=== PATIENT | female | born 1990 | race Caucasian/White ===

== ENCOUNTER 2017-02-09 12:43 | Inpatient (IN) | payer OTHER ==
[2017-02-09] MEDS ORDERED: Benzocaine/Menthol 20%-0.5% Topical Spray (60 ml) TOP PRN (13:36)
[2017-02-09] MEDS ORDERED: Oxycodone/Acetaminophen 5/325 mg Tab PO PRN (13:36)
[2017-02-09] MEDS ORDERED: Oxytocin 30 UNIT 30 UNITS/500 ML BAG IV SCH (13:45)
[2017-02-09 14:53] LABS: BASO % 0.3 % (0.0-2.0); EOS # 0.1 K/uL (0.0-0.7); EOS % 0.6 % (0.0-4.0); HEMATOCRIT 35.9 % (34.0-47.0); LYMPH # 2.5 K/uL (1.0-4.3); MEAN CELL VOLUME 85.4 fL (81.0-99.0); MEAN CORPUSCULAR HEMOGLOBIN 28.3 pg (27.0-31.0); MEAN CORPUSCULAR HGB CONC 33.2 g/dL (33.0-37.0); MEAN PLATELET VOLUME 10.1 fL (7.2-11.7); MONO # 0.9 K/uL (0.0-0.8); MONO % 6.5 % (0.0-10.0); NRBC % 0.2 % (0.0-2.0); RED CELL DISTRIBUTION WIDTH 14.8 % (11.5-14.5); WHITE BLOOD COUNT 13.7 K/uL (4.8-10.8)
[2017-02-09 15:06] LABS: CHLORIDE 103 mmol/L (98-107); POTASSIUM 3.5 mmol/L (3.6-5.2); SODIUM 138 mmol/L (132-148)
[2017-02-09 15:08] LABS: ALKALINE PHOSPHATASE 176 U/L (38-126); AST/SGOT 20 U/L (14-36); BILIRUBIN,TOTAL 0.4 mg/dL (0.2-1.3); CARBON DIOXIDE 20 mmol/L (22-30); GFR AFRICAN-AMERICAN > 60; RBC URINE 3 /hpf (0-3); TOTAL PROTEIN 7.5 g/dL (6.3-8.3); URINE BILIRUBIN NEGATIVE (NEGATIVE); URINE BLOOD NEGATIVE (NEGATIVE); URINE COLOR Yellow (YELLOW); URINE GLUCOSE (UA) NORMAL (Normal); URINE KETONE NEGATIVE (NEGATIVE); URINE LEUKOCYTE ESTERASE NEG Leu/uL (Negative); URINE PROTEIN NEGATIVE (NEGATIVE); URINE UROBILINOGEN NORMAL mg/dL (0.2-1.0); WBC URINE < 1 /hpf (0-5)
[2017-02-09 15:09] LABS: ALT/SGPT 28 U/L (9-52); BLOOD UREA NITROGEN 7 mg/dL (7-17); CALCIUM 9.1 mg/dl (8.6-10.4); GLUCOSE,RANDOM 66 mg/dL (65-105)
--- NOTE | 2017-02-09 15:46 | OBHP ---
Datetime: 02/09/2017 13:22 IP Adm Impression: Term, intrauterine ; Active labor; Ruptured Membranes IP Admit Plan: Admit to unit; Initiate labor protocol Admit Comment, IP Provider: Patient is a 27 yo at 40w5d with CARMEN 02/04/17 by 39 week sonogram presents to L and D with contractions since 1am. Patient recently immigrated from [place] one month ag o and has had a total of 3 visits with the [facility] in [place]. Endorses +FM, denies VB or LOF. No other complaints at this time. Issues: denies OB Hx: 1. 2009 at term, no complications 2. 2011 at term, no complications 3. 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 Stable, afebrile 2. Admission labs - UA, CBC, CMP, T+S, RPR 3. IV hydration with LR 4. Anticipate vaginal delivery 5. Plan d/w attending Mercy Torrez DO PGY-1 Attending Attestation Patient seen and evaluated by me with the Resident. I agree with the documentaiton of events as ab ove. Patient is GBS (+); due to the imminent delivery, not able to administer penicillin; will notify peds. Patient clinically stable. Plan: - as above. FHR - Baseline A Provider: 130 Comments, ACOG Physical Exam: VS: BP 112/63 HR 62 Gen: AAOx3 Abd: Soft, gravid Ext: No clubbing, cyanosis, edema SVE: 10/100/+2 FHT: 130s PNL A+ Rubella immune HIV NR RPR NR GBS + GC/CT negative HepBSag NR 1 hr GTT wnl Quant gold negative EGA AdmitDate IP: 37.6 Vital Signs Provider: Reviewed; Within Normal Limits IP Chief Complaint: Uterine contractions Dilatation, Provider: 10 Effacement, Provider: 100 Station, Provider: 2
--- NOTE | 2017-02-09 15:58 | OBDS ---
DELIVERY PERSONNEL Delivery Doctor: Arlene Reed MD Resident: Carmelo Galo MD MATERNAL INFORMATION Delivery Anesthesia: None Medications in Delivery: PITOCIN Estimated Blood Loss (ml): 300 Placenta Cultured: No Maternal Complications: None Provider Comments: 27 yo now [id number] delivered a viable male via over intact perineum on at 12:40pm. Amniotic fluid was clear. 's head was delivered in a controlled manner. No n uchal was noted. 's shoulders was delivered atraumatically and followed by the body. 's m outh and nose were bulb suctioned. Cord was clamped and cut. was placed on mother's abdomen. C ord blood and cord gases collected and sent to the lab. An intact placenta with 3VC was delivered. Fu ndus firm with IV Pitocin and fundal massage. EBL 300 mL. The infant weighs 7lb8oz with APGARS 9 and 9. Mom and baby are recovering well in stable condition. All instruments and sponge counts were corre ct. Attending: Dr Derek MD Resident: Mercy Torrez DO PGY-1 Attending Attestation: I was present with and participated in the procedure with the Resident as described above. I agree with the documentation of the evants as above. Patient and bonding and are clinically stable. LABOR SUMMARY EDC: 02/24/2017 00:00 No. Babies in Womb: 1 Attempted: No Labor Anesthesia: None LABOR INFORMATION Reason for Induction: Not Applicable Onset of Labor: 02/09/2017 01:00 Complete Dilatation: 02/09/2017 12:30 Oxytocin: N/A Group B Beta Strep: Positive Antibiotics # of Doses: none Steroids Given: None Reason Steroids Not Administered: Not Applicable MEMBRANES Membranes Rupture Method: Spontaneous Rupture of Membranes: 02/09/2017 12:30 Length of Rupture (hrs): 0.17 Amniotic Fluid Color: Clear Amniotic Fluid Amount: Moderate Amniotic Fluid Odor: Normal STAGES OF LABOR Stage 1 hrs: 11 Stage 1 min: 30 Stage 2 hrs: 0 Stage 2 min: 10 Stage 3 hrs: 0 Stage 3 min: 5 Total Time in Labor hrs: 11 Total Time in Labor min: 45 VAGINAL DELIVERY Episiotomy: None Laceration Extension: N/A Laceration Type: None Laceration Repair: Not Applicable Initial Vag Sponge Count: 10 Final Vag Sponge Count: 10 Initial Vag Sharps Count: 0 Final Vag Sharps Count: 0 Sponge Count Correct: Yes Sharps Count Correct: N/A Count Comment: correct BABY A INFORMATION Infant Delivery Date/Time: 02/09/2017 12:40 Method of Delivery: Vaginal Born in Route : No : N/A Forceps: N/A Vacuum Extraction: N/A Shoulder Dystocia : No SHOULDER DYSTOCIA BABY A Delivery Date/Time: 02/09/2017 12:40 PRESENTATION/POSITION BABY A Presentation: Cephalic Cephalic Presentation: Vertex PLACENTA INFORMATION BABY A Placenta Delivery Time : 02/09/2017 12:45 Placenta Method of Delivery: Spontaneous Placenta Status: Delivered SCORES BABY A Heart Rate 1 min: >100 bpm Resp Effort 1 min: Good Cry Reflex Irritability 1 min: Cough or Sneeze or Pulls Away Muscle Tone 1 min: Active Motion Color 1 min: Body [place], Extremities Blue SCORE 1 MIN: 9 Heart Rate 5 min: >100 bpm Resp Effort 5 min: Good Cry Reflex Irritability 5 min: Cough or Sneeze or Pulls Away Muscle Tone 5 min: Active Motion Color 5 min: Body [place], Extremities Blue SCORE 5 MIN: 9 INFANT INFORMATION BABY A Gestational Age at Delivery: 40.0 Gestational Status: Term Outcome : Liveborn Condition : Stable Sex: Male IDENTIFICATION/MEDS BABY A ID Band Number: [id number] ID Band Location: Left Leg; Left Arm Sensor Applied: Yes Sensor Number: [id number] Sensor Location : Cord Clamp Vitamin K Given : Left Thigh Erythromycin Given: Given Both Eyes WEIGHT/LENGTH BABY A Birthweight (gms): 3425 Infant Weight (lb): 7 Weight (oz): 9 Length Inches: 20.00 Length cms: 50.8 CORD INFORMATION BABY A No. Cord Vessels: 3 Nuchal Cord : N/A Nuchal Cord Other: n/a True Knot: n/a Cord Blood Taken: Yes Suction: Mouth; Nose ASSESSMENT BABY A Infant Complications: None Physical Findings at Delivery: Within Normal Limits Respirations: Appears Normal Statistics Teacher/ALS Called : No Infant Care By: Jessica Transferred To: [facility]
[2017-02-10 08:40] VITALS: O2SAT 98
[2017-02-10 11:18] LABS: BASO % 0.2 % (0.0-2.0); EOS # 0.1 K/uL (0.0-0.7); EOS % 0.5 % (0.0-4.0); HEMATOCRIT 33.6 % (34.0-47.0); LYMPH # 1.9 K/uL (1.0-4.3); LYMPH % 17.7 % (20.0-40.0); MEAN CELL VOLUME 85.4 fL (81.0-99.0); MEAN CORPUSCULAR HEMOGLOBIN 28.6 pg (27.0-31.0); MEAN CORPUSCULAR HGB CONC 33.5 g/dL (33.0-37.0); MEAN PLATELET VOLUME 9.7 fL (7.2-11.7); MONO # 0.8 K/uL (0.0-0.8); MONO % 7.4 % (0.0-10.0); RED CELL DISTRIBUTION WIDTH 14.8 % (11.5-14.5); WHITE BLOOD COUNT 10.9 K/uL (4.8-10.8)
--- NOTE | 2017-02-10 17:49 | OBPPN ---
Datetime: 02/10/2017 09:03 PP Heart Prov: Normal PP Lungs Prov: Normal PP Abdomen/Uterus Prov: Normal PP Lochia Prov: Normal PP Extremities Prov: Normal PP Progress Prov: Normal PP Impression Prov: Normal progression PP Plan Prov: Continue present management PP Progress Note Prov: Patient was seen and examined at bedside. Patient reports that she is doing w ell and pain is well-controlled. Patient is tolerating diet, passing flatus, ambulating, urinating wi thout difficulty and had a bowel movement. Patient reports moderate lochia. Patient denies chest pain , SOB, palpitations, calf tenderness and dizziness. Vital signs: BP: 105/66 HR: 79, Temp: 98.2 Labs: 13.7>11.9/35.9<223, f/u AM labs A positive, Rubella Immune Gen: AAO X3, NAD Cardio: RRR, Normal S1, S2 Pulm: CTA bilaterally Abdomen: Soft, appropriately tender and fundus is firm and below the umbilicus Ext: No edema, no cyanosis and no clubbing A/P: 27 yo at 40w5d s/p PPD#1 1. Stable, Afebrile 2. F/u am CBC 3. Pain control: percocet and motrin 4. Encourage ambulation and hydration 5. Encourage breast feeding 6. Male infant: undecided circumcision 7. Continue routine care 8. Plan d/w attending Jose J Soto DO PGY-1 Pt seen and examined with resident and agrees with the above
--- NOTE | 2017-02-11 07:40 | OBDCSUM ---
Datetime: 02/11/2017 07:37 Discharged to, Provider: Home Follow up at, Provider: 6wee Discharge Diagnosis, Provider: Term Delivered Follow up in weeks, Provider: clinic Discharge Comment, Provider: dc home no sex motrin prn f/u in 6 weeks Discharge Diagnosis Prov Other: 40 weeks
--- NOTE | 2017-02-11 07:40 | OBPPN ---
Datetime: 02/11/2017 07:36 PP Pain Prov: Within normal limits PP Nausea Prov: Denies PP Flatus Prov: Yes PP Abdomen/Uterus Prov: Normal PP Lochia Prov: Normal PP Extremities Prov: Normal PP Comments Phys Exam Prov: fudus below umblicuis ext mild edema,no calf ten PP Impression Prov: Normal progression PP Plan Prov: Discharge PP Progress Note Prov: pt was seen at bed side, pain under control,no n/v, tolerating deit, voiding, min lochia, flatus+ ppd#2 s/p dc home no sex motrin prn f/u in 6 weeks Vital Signs Provider PP: Reviewed; Within Normal Limits
[2017-02-11 17:44] VITALS: BP 102/60; PULSE 83; RESP 18; TEMP 97.7
== END 2017-02-11 13:30 | disposition home or self-care (01) | DRG 373 ==
LOC: C.EROB 12:43 → C.4D 12:49 → C.4M 20:20
PROVIDERS: ADMIT Obstetrics & Gynecology; ATTEND Obstetrics & Gynecology
PROC: 10E0XZZ Delivery of Products of Conception, External Approach (ICD-10-PCS; principal; 2017-02-09)
DX: O99.824 Streptococcus B carrier state complicating childbirth (principal); Z37.0 Single live birth; Z3A.40 40 weeks gestation of pregnancy